=== PATIENT | male | born 1985 | race African-American/Black ===

== ENCOUNTER 2019-08-14 13:47 | Emergency (ER) | payer SELFPAY | END 2019-08-14 14:32 | disposition home or self-care (01) | LOC: ERS 13:47 | DX: H93.12 Tinnitus, left ear (principal); J34.9 Unspecified disorder of nose and nasal sinuses; Z87.891 Personal history of nicotine dependence | CPT/HCPCS: 99281 ==

== ENCOUNTER 2020-08-09 17:39 | Emergency (ER) | payer BC, SELFPAY ==
[2020-08-09] MEDS ORDERED: Ketorolac Tromethamine 30 MG/ML VIAL ONE (19:12)
--- NOTE | 2020-08-15 10:49 | EKG ---
Test Reason : Blood Pressure : / mmHG Vent. Rate : 062 BPM Atrial Rate : 062 BPM P-R Int : 178 ms QRS Dur : 082 ms QT Int : 362 ms P-R-T Axes : 043 076 047 degrees QTc Int : 367 ms Normal sinus rhythm Minimal voltage criteria for LVH, may be normal variant Borderline ECG Confirmed by SHARI TEJEDA, NICCI Gerber ([id number]), editorial specialist KECIA STEIN ([id number]) on 08/15/2020 10:48:37 AM Referred By: Confirmed By:NICCI MCCARTHY MD
== END 2020-08-09 20:16 | disposition home or self-care (01) ==
LOC: ERS 17:39
DX: M25.512 Pain in left shoulder (principal); M54.10 Radiculopathy, site unspecified; M54.6 Pain in thoracic spine; Z87.891 Personal history of nicotine dependence
CPT/HCPCS: 93005; 96372; J1885

== ENCOUNTER 2021-01-07 03:15 | Emergency (ER) | payer BC ==
[2021-01-07] MEDS ORDERED: Ibuprofen 200 MG TAB ONE (04:13)
[2021-01-07] MEDS ORDERED: Acetaminophen 500 MG TAB ONE (04:13)
== END 2021-01-07 04:19 | disposition home or self-care (01) ==
LOC: ERS 03:15
DX: M70.812 Other soft tissue disorders related to use, overuse and pressure, left shoulder (principal); M70.822 Other soft tissue disorders related to use, overuse and pressure, left upper arm; I10 Essential (primary) hypertension; Z87.891 Personal history of nicotine dependence
CPT/HCPCS: 99283

== ENCOUNTER 2021-01-28 12:06 | Emergency (ER) | payer BC, SELFPAY ==
[2021-01-28 13:04] LABS: Anion Gap 9 mmol/L (10-20); BUN (Urea Nitrogen) 14 mg/dL (8.9-20.6); Calc. Creatinine Clearance 0 mL/min (70-130); Calcium 9.3 mg/dL (7.8-10.44); Carbon Dioxide 30 mmol/L (22-29); Chloride 104 mmol/L (98-107); Glucose 105 mg/dL (70-105); Potassium 4.1 mmol/L (3.5-5.1); Sodium 139 mmol/L (136-145)
== END 2021-01-28 14:35 | disposition home or self-care (01) ==
LOC: ERS 12:06
DX: I10 Essential (primary) hypertension (principal); Z87.891 Personal history of nicotine dependence
CPT/HCPCS: 36415; 80048; 93005

== ENCOUNTER 2021-05-11 22:02 | Emergency (ER) | payer SELFPAY ==
[2021-05-11] MEDS ORDERED: Lidocaine 1% (PF) 30 ML VIAL ONE (22:50)
== END 2021-05-11 23:27 | disposition home or self-care (01) ==
LOC: ERS 22:02
DX: S63.286A Dislocation of proximal interphalangeal joint of right little finger, initial encounter (principal); V89.9XXA Person injured in unspecified vehicle accident, initial encounter; I10 Essential (primary) hypertension
CPT/HCPCS: 26770; J2001